=== PATIENT | female | born 1990 | race Two or more races ===

== ENCOUNTER 2024-09-28 19:17 | Emergency (ER) | payer MEDICAID, SELFPAY ==
[2024-09-28 19:39] VITALS: BP 130/84; PULSE 88; RESP 18; TEMP 36.8; O2SAT 99
[2024-09-28] MEDS: METOCLOPRAMIDE 5 MG TABLET 10 MG PO (20:02)
[2024-09-28] MEDS: KETOROLAC INJ 60 MG/2 ML VIAL IM (20:03)
[2024-09-28 21:20] VITALS: BP 128/76; PULSE 86; RESP 16; TEMP 36.7; O2SAT 98
--- NOTE | 2024-09-29 03:53 | EDNOTE_ITS ---
ED Headache RME/HPI General Chief Complaint: Headache Stated Complaint: HEADACHE X 1DAY Time Seen by Provider: 09/28/24 19:45 Arrival date/time: 09/28/24 19:17 34F with history of migraines presents to ED with 1 day of L-sided headache and light sensitivity. Pain started slowly and gradually got worse. Limitations: no limitations Related Data Previous Rx's ?Medication ?Instructions ?Recorded diphenhydramine HCl 25 mg tablet 25 mg PO Q6H PRN martha rgic reaction 06/17/19 (Benadryl Allergy) #20 tabs famotidine 40 mg tablet (Pepcid) 40 mg PO QDAY #7 tabs 06/17/19 hydrocortisone 2.5 % topical cream 1 applicatio topica l TID PRN 06/17/19 itching #20 grams [id number]-[id number]-wlbvfimv 1 cap PO Q6H PRN hea dache #20 caps 12/30/21 50 mg-300 mg-40 mg capsule (Fioricet) ibuprofen 800 mg tablet 800 mg PO TID PRN pain #30 t abs 12/30/21 ondansetron 4 mg disintegrating 4 mg PO Q6H PRN nausea and 12/30/21 tablet vomiting #10 tabs Allergies Allergy/AdvReac Type Severity Reaction Status Date / Time No Known Allergies Allergy Verified 02/02/18 23:01 Review of Systems Review of Systems Systems Reviewed: All systems reviewed, normal except as documented Constitutional Constitutional: Reports system reviewed and no additional complaints, except as documented, Reports as per HPI, Denies fever(s) and Reports headache(s) Eyes Eyes: Reports as per HPI and Reports photophobia ENT Ears, Nose, Mouth, and Throat: Denies disequilibrium and Reports headache(s) Cardiovascular Cardiovascular: Reports system reviewed and no additional complaints, except as documented, Denies chest pain and Denies dyspnea Respiratory Respiratory: Reports system reviewed and no additional complaints, except as documented, Denies cough and Denies dyspnea Gastrointestinal Gastrointestinal: Reports system reviewed and no additional complaints, except as documented, Denies abdominal pain, Denies nausea and Denies vomiting Neurologic Neurologic: Reports system reviewed and no additional complaints, except as documented, Denies confusion, Denies disequilibrium and Reports headache(s) Psychiatric Psychiatric: Denies confusion Past Medical History Past Medical History NEUROLOGIC: Positive Migraine CARDIAC: Negative Congestive Heart Failure RESPIRATORY: Negative Chronic Obstructive Pulmonary Disease (COPD) GENITOURINARY: Negative Renal Disease ENDOCRINE: Negative Diabetes Mellitus Type 1 or Diabetes Mellitus Type 2 Social History SMOKING STATUS: Never smoker SUBSTANCE USE: does not use ED Exam General Limitations: Present no limitations General appearance: Present alert and in no apparent distress Head Head exam: Present atraumatic Eye Eye exam: Present normal appearance, PERRL and EOMI ENT ENT exam: Present normal exam, normal oropharynx and mucous membranes moist Neck Neck exam: Present normal inspection, full ROM and trachea midline Chest Chest inspection: Present normal inspection and symmetric chest wall rise Respiratory Respiratory exam: Present normal lung sounds bilaterally Cardiovascular Cardiovascular exam: Present regular rate, normal rhythm and normal heart sounds Abdominal Exam Abdominal exam: Present soft and normal bowel sounds Extremities Exam Extremities exam: Present normal inspection and full ROM Back Exam Back exam: Present normal inspection and full ROM Neurological Exam Neurological exam: Present alert, oriented X3 and CN II-XII intact Psychiatric Psychiatric exam: Present normal affect and normal mood Skin Skin exam: Present warm, dry, intact and normal color Course Quality Measures none Orders Category Date Time Status Ketorolac Inj [Toradol Inj] Med 09/28/24 19:49 Discontinued 60 mg IM X1 ONE Metoclopramide [Reglan] Med 09/28/24 19:49 Discontinued 10 mg PO X1 ONE Vital Signs Vital signs: Vital Signs Temperature 98.2 F 09/28/24 19:39 Pulse Rate 88 09/28/24 19:39 Respiratory Rate 18 09/28/24 19:39 Blood Pressure 130/84 09/28/24 19:39 Pulse Oximetry (%) 99 09/28/24 19:39 Oxygen Delivery Method Room Air 09/28/24 19:39 O2 at 99% on RA and WNLs Headache MDM Narrative MDM Narrative:: 34F with history of migraines presents to ED with 1 day of L-sided headache and light sensitivity. Pain started slowly and gradually got worse. Physical exam reveals normal pupil response and EOM. Gait normal. Patient is afebrile, calm, and alert. Meds improved symptoms. Patient data External records reviewed:: [facility] previous records Clinical information provided by:: patient Social determinants that could affect healthcare access:: none Patient has the following chronic illnesses:: migraines How is presenting disease/condition affected by chronic disease/condition?: caused by Evaluation data The following diagnostics were reviewed and interpreted by me:: other (specify) (none) Lab and/or radiology exams considered but not ordered:: not ordered Interpretation Summary: n/a Medications / Prescriptions Medications or Prescriptions considered but not ordered:: ordered Medication administrations:: Medication Administration History Discontinued Medications Ketorolac Tromethamine (Ketorolac Inj 60 Mg/2 Ml Vial) 60 mg IM X1 ONE Stop: 09/28/24 19:50 Last Admin: 09/28/24 20:03 Dose: 60 mg Documented By: Comments: patient denies chance of Metoclopramide HCl (Metoclopramide 5 Mg Tablet) 10 mg PO X1 ONE Stop: 09/28/24 19:50 Last Admin: 09/28/24 20:02 Dose: 10 mg Documented By: above Consultations Consultation(s) initiated? (list below): No Diagnosis Differential diagnosis headache: migraine, tension headache, subarachnoid hemorrhage, headache, meningitis, sinusitis and postconcussion syndrome Most likely diagnosis given after review of the tests above:: migraines Admission Indicated Admission indicated?: not indicated Admission Request Was there a request for admission?: No Disposition Plan Disposition Plan: Discharge Discharge Attestation Discharge Attestation: The patient and all family members were given an opportunity to ask questions and understood the discharge instructions. Discharge instructions specifically effects, indications for sooner follow up or return to the emergency department, and the expected course of current diagnosis. Patient condition: Stable Discharge Plan Plan Patient Disposition: HOME (Self Care) Disposition Comment: Stable Prescriptions/Referrals Prescriptions/Med Rec: No Action famotidine [Pepcid] 40 mg tablet 40 mg PO QDAY Qty: 7 0RF diphenhydramine HCl [Benadryl Allergy] 25 mg tablet 25 mg PO Q6H PRN (Reason: allergic reaction) Qty: 20 0RF hydrocortisone 2.5 % cream 1 applicatio TOPICAL TID PRN (Reason: itching) Qty: 20 0RF edvooqfqrq-ywbrrdrcpmcqv-iivr [Fioricet] 50-300-40 mg capsule 1 cap PO Q6H PRN (Reason: headache) Qty: 20 0RF ibuprofen 800 mg tablet 800 mg PO TID PRN (Reason: pain) Qty: 30 0RF ondansetron 4 mg tablet,disintegrating 4 mg PO Q6H PRN (Reason: nausea and vomiting) Qty: 10 0RF Referrals: No Primary/Family,Physician [Primary Care Provider] - In 1 week Problem List Clinical Impression: Migraine Patient/Caregiver Discharge Instructions Education Materials: ED Headache, Migraine, Classic Additional Instructions: Please follow-up with PCP within 24-48 hours and return immediately if symptoms worsen. Print Language: [place]i Stand Alone Forms: Work/School Release, Patient Portal Info Letter PA/DECISION SUPPORT MANAGER Supervising Physician PA/DECISION SUPPORT MANAGER Supervising Physician: Dr. Siddiqi
== END 2024-09-28 21:22 | disposition home or self-care (01) ==
PROVIDERS: Emergency Provider Emergency Medicine
DX: G43.909 Migraine, unspecified, not intractable, without status migrainosus (principal)
CPT/HCPCS: 96372; 99283; J1885; A9270